=== PATIENT | female | born 1975 | race Caucasian/White ===

== ENCOUNTER 2020-05-10 23:10 | Emergency (ER) | payer MEDICAID, SELFPAY ==
[2020-05-10 23:20] VITALS: PULSE 113; RESP 24; BMI 24.9
--- NOTE | 2020-05-10 23:48 | PC.NURSE ---
Obtained patient's . Patient had her RX bottle of naltrexone 50mg. Call placed to [facility] pharmacy and confirmed based on patient's name and RX bottle.
--- NOTE | 2020-05-10 23:52 | PC.NURSE ---
Patient denying SI at this time.
--- NOTE | 2020-05-10 23:57 | ED.PSYCH ---
HPI - Psych General Chief Complaint: Psychiatric Symptoms Stated Complaint: crisis Time Seen by Provider: 05/10/20 23:57 Source: patient Mode of arrival: other ([employer]) Limitations: no limitations History of Present Illness HPI Narrative: Patient is a 44-year-old female who was brought in by the [place] [employer] after being found [place] a bus stop near the [employer] [facility]. Apparently she states she was kicked off the bus erroneously and that she did nothing wrong. she states the male officers were out of line because she did nothing wrong . She does not want to be here she is refusing medical care, she denies any injuries or pain. She adamantly denies any suicidal ideations or homicidal ideations despite secondhand story of her saying she would rather be , she said her statements were taken out of context and she has no plans to hurt herself, she has never tried to hurt herself, had denies a history of being a cutter or anything similar. She is demanding her clothes and demanding she leaves. She is very concerned she will lose [facility]. she admits to drinking couple of pt with a friend earlier today but denies any drug use. Review of Systems Review of Systems: Constitutional: No Fever, No Chills ENT/Mouth: No Ear Pain, No Nasal Congestion, No sore throat Eyes: No Eye Pain, No Swelling, No Redness Cardiovascular: No Chest Pain, No SOB Respiratory: No Cough, No Sputum, No Dyspnea Gastrointestinal: No Nausea, No Vomiting, No Diarrhea, No Hematochezia, No Melena Genitourinary: No Dysuria, No Urinary Frequency, No Hematuria Musculoskeletal: No Myalgias Skin: No Skin Lesions, No rash Neuro: No Weakness, No Numbness, No Paresthesias, No Dizziness, No Headache Psych: denies Anxiety, denies Depression, denies SI/HI Yes all other systems are reviewed and are negative [facility] Past Medical History Medical History (Updated 05/11/20 @ 00:05 by CAMI Brown) Diabetic neuropathy Social History Social History (Updated 05/11/20 @ 00:01 by CAMI Brown) Alcohol intake: current Alcohol type: hard liquor Advance Directives: No Advance Directives Information Provided: No Physical Exam Vital Signs: Vital Signs: Vital Signs Resp 05/10/20 23:20 24 H Body Mass Index 24.9 Const: General: cooperative, healthy appearing and no acute distress Nutritional Appearance: average body habitus and well nourished Orientation/consciousness: patient oriented x3 Neuro: General: patient oriented x3 Extrem: General: Yes normal to inspection Psych: Appearance: disheveled ( Slightly) Speech and movement: Normal speech and movement present and Psychomotor agitation in speech present ( but cooperative) Affect: Animated affect present Attitude: cooperative (mostly) Thought content: suicidality, no homicidality, no delusions and No delusions Insight: Fair insight present (Psych) Judgement: Fair judgement present (Psych) Course Course Course Narrative: patient is a 44-year-old female who was brought in tonight by the [place] [employer] after she was kicked off of the [employer]. Upon arrival she was refusing to see who she was but at the bedside during my exam, she was cooperative, told me her name, tell me where she was living answered all my questions and did allow us to take vitals which were [facility]. She denies any pain or injuries in wants to leave [facility]. She is refusing medical care. she admits to drinking earlier today but states she is not drunk currently. Denies any drug use. MDM - Psych Restraints Face to Face Assessment: Face to Face Assessment: Current Situation: After assessment of the patient, a review of the pertinent medical record and a discussion with nursing staff, I feel the patient requires a restrain intervention. Reaction To: [] Medical Condition: [] Behavioral State: [] Continued Need: [] Discharge Plan Discharge Clinical Impression: Acute anxiety Patient Disposition: Left Against Medical Advice Referrals: Physician,Unknown [Primary Care Provider] - 2 days ( Please be sure to follow-up with your medical provider)
[2020-05-11 00:20] VITALS: BP 146/81; PULSE 100; RESP 20; TEMP 36.6; O2SAT 95
== END 2020-05-11 00:30 | disposition left against medical advice (07) ==
PROVIDERS: Emergency Provider Emergency Medicine Emergency Medical Services
DX: F41.1 Generalized anxiety disorder (principal); F43.0 Acute stress reaction
CPT/HCPCS: 99283